=== PATIENT | female | born 1960 | race Caucasian/White ===

== ENCOUNTER 2020-02-15 15:04 | Outpatient (CLI) | payer OTHER, SELFPAY ==
--- NOTE | ~2020-02-15 | MM_ITS ---
EXAMINATION: MM screening yolanda BI w anne HISTORY: Screening mammogram TECHNIQUE: Craniocaudal and mediolateral oblique 3-D tomosynthesis images were obtained and synthetic 2-D images were generated. CAD analysis was submitted and interpreted. COMPARISON: 08/14/2018, 01/21/2017, 01/19/2017 BREAST PARENCHYMAL COMPOSITION: There are scattered areas of fibroglandular density. FINDINGS: RIGHT BREAST: There is no evidence of suspicious mass, calcification, or architectural distortion to suggest malignancy. There has been no significant interval change. LEFT BREAST: An asymmetry is present in the middle third of the slightly outer breast 5 cm from the n ipple on the craniocaudal view. IMPRESSION: 1. Left breast asymmetry on the craniocaudal view. 2. Additional mammographic views and possible breast ultrasound are recommended. BI-RADS Category 0: Incomplete: Needs additional imaging evaluation. Reviewed, dictated and finalized at location A. IMPRESSION: 1. Left breast asymmetry on the craniocaudal view. 2. Additional mammographic views and possible breast ultrasound are recommended . BI-RADS Category 0: Incomplete: Needs additional imaging evaluation.
== END 2020-02-15 15:05 | disposition home or self-care (01) ==
PROVIDERS: PCP Family Medicine Adolescent Medicine; Visit Provider Family Medicine Adolescent Medicine
DX: Z12.31 Encounter for screening mammogram for malignant neoplasm of breast (principal); R92.8 Other abnormal and inconclusive findings on diagnostic imaging of breast
CPT/HCPCS: 77063; 77067

== ENCOUNTER 2020-03-10 12:33 | Outpatient (CLI) | payer OTHER, SELFPAY ==
--- NOTE | ~2020-03-10 | MMUS_ITS ---
EXAMINATION: MM diagnostic mammo unilat LT, US breast LT limited HISTORY: Left breast asymmetry on screening mammogram TECHNIQUE: Additional 3-D tomosynthesis images of the left breast were performed and synthetic 2-D im ages were generated. CAD analysis was submitted and interpreted. High resolution limited left breast ultrasound was performed. COMPARISON: 02/15/2020, 08/14/2018, 01/19/2017, 03/08/2014 FINDINGS: MAMMOGRAPHIC FINDINGS: With spot compression views, the left breast asymmetry has appearance similar to the 2013 comparison. ULTRASOUND: There is no evidence of focal abnormal solid or cystic lesion in the vicinity of the mammographic fin ding in question. IMPRESSION: 1. No mammographic or sonographic evidence of malignancy. 2. Recommend routine screening mammography in one year. BI-RADS Category 2: Benign finding(s). Reviewed, dictated and finalized at location A. IMPRESSION: 1. No mammographic or sonographic evidence of malignancy. 2. Recommend routine screening mammography in one year. BI-RADS Category 2: Benign finding(s).
== END 2020-03-10 12:34 | disposition home or self-care (01) ==
LOC: ANHIMG 12:34
PROVIDERS: PCP Family Medicine Adolescent Medicine; Visit Provider Family Medicine Adolescent Medicine
DX: R92.8 Other abnormal and inconclusive findings on diagnostic imaging of breast (principal)
CPT/HCPCS: 76642; 77065

== ENCOUNTER 2020-10-03 21:36 | Emergency (ER) | payer OTHER, SELFPAY ==
--- NOTE | ~2020-10-03 | XR_ITS ---
EXAMINATION: XR chest 2V DATE: 10/03/2020 22:18 INDICATION: Sternal chest pain TECHNIQUE: PA and lateral views of the chest are obtained. COMPARISON: None available FINDINGS: The lungs are free of acute opacities. There is no pleural effusion or pneumothorax. The ca rdiomediastinal silhouette is normal. There is mild thoracic spondylosis. IMPRESSION: 1. No acute cardiopulmonary abnormality. Reviewed, dictated and finalized at location A.
--- NOTE | 2020-10-03 21:38 | ECG_ITS ---
Measurements Intervals [place] Rate: 89 P: 82 FL: 174 QRS: 55 QRSD: 80 T: 28 QT: 362 QTc: 442 Interpretive Statements SINUS RHYTHM FREQUENT ATRIAL PREMATURE COMPLEXES RSR' IN V1 OR V2, CONSIDER RIGHT VENTRICULAR HYPERTROPHY OR RIGHT VCD BORDERLINE ST-T WAVE ABNORMALITY- ANTEROLAT/INF LEADS ABNORMAL ECG Electronically Signed On 10-04-2020 5:49:36 CDT by Kendall Lo D.O.
[2020-10-03 21:48] VITALS: BP 178/82; PULSE 85; RESP 18; TEMP 36.2; O2SAT 100
[2020-10-03 22:13] LABS: Basophils Absolute Auto 0.1 K/mm3 (0.0-0.1); Basophils Percent Auto 0.7 % (0.2-1.2); Eosinophils Absolute Auto 0.1 K/mm3 (0-0.3); Eosinophils Percent Auto 1.4 % (0-4.4); Hematocrit 47.6 % (37.0-47.0); Hemoglobin 15.5 g/dL (12.0-15.0); Immature Granulocyte Absolute 0.02 K/mm3 (0.00-0.031); Immature Granulocyte Percent A 0.2 % (0-0.5); Lymphocytes Absolute Auto 3.48 K/mm3 (0.9-3.2); Lymphocytes Percent Auto 36.7 % (18.3-44.2); Mean Corpuscular HGB Conc 32.6 g/dl (32-36); Mean Corpuscular Hemoglobin 28.5 pg (26-34); Mean Corpuscular Volume 87.7 fl (80-100); Mean Platelet Volume 10.2 fl (7.4-10.4); Monocytes Absolute Auto 0.7 K/mm3 (0.1-0.6); Neutrophils Absolute Auto 5.1 K/mm3 (1.3-6.7); Platelet Count Result 271 k/mm3 (150-375); Red Blood Count 5.43 M/mm3 (4.2-5.4); Red Cell Distribution Width 13.2 % (11.5-14.5); White Blood Count 9.5 K/mm3 (4.5-10.0)
[2020-10-03 22:21] LABS: Anion Gap 9 mmol/L (8-16); Blood Urea Nitrogen 16 mg/dL (7-17); Calcium 9.6 mg/dL (8.4-10.2); Carbon Dioxide 24 mmol/L (22-30); Chloride 108 mmol/L (98-107); Estimated CRCL calculation 63 ml/min; Estimated Glomerular Filt Rate > 60; Glucose 95 mg/dL (65-105); INR 0.8; Potassium 3.7 mmol/L (3.4-5.0); Prothrombin Time 11.9 Seconds (11.1-14.7); Sodium 141 mmol/L (137-145)
[2020-10-03 22:22] LABS: Partial Thromboplastin Time 24.7 SECONDS (22.3-36.8)
[2020-10-03 22:33] LABS: Troponin I < 0.012 ng/mL (0.000-0.034)
--- NOTE | 2020-10-03 23:00 | ED.ARRPALP ---
HPI - Arrhythmia/Palpitations General Chief Complaint: Arrhythmia/Palpitations Stated Complaint: palpitations Time Seen by Provider: 10/03/20 22:48 History of Present Illness HPI narrative: 59 yo female w/ h/o htn presents to the ED c/o palpitations. SHe reports that this afternoon she noted that she kept feeling her heart have 2 fast beats then skip the next one. This seemd to be happening a few times each minute. This was accompanied by a nonpainful funny feeling in her chest. She notes that this may have been anxiety as she was becoming increasingly concerned about the palpitations. They eventually went away on there own. Although they returned again this evening. She denies any additional symptoms at this time. Related Data Home Medications Medication Instructions Recorded Confirmed atorvastatin 10/03/20 lisinopril 10/03/20 lorazepam 10/03/20 10/03/20 Allergies Allergy/AdvReac Type Severity Reaction Status Date / Time No Known Allergies Allergy Verified 10/03/20 21:59 Review of Systems Review of Systems: All systems reviewed & are unremarkable except as noted in HPI and below Constitutional: Constitutional: Denies chills, Denies fever(s) and Denies weakness Cardiovascular: Cardiovascular: Reports as per HPI Respiratory: Respiratory: Denies dyspnea Gastrointestinal: Gastrointestinal: Denies abdominal pain and Denies nausea Genitourinary: Genitourinary: Reports no additional female genitourinary complaints Neurologic: Denies confusion, Denies dizziness and Denies weakness Psychiatric: Psychiatric: Reports anxiety [facility] Past Medical History Medical History (Updated 10/07/20 @ 18:24 by Tommie Bauer MD) HTN (hypertension) Social History Social History (Updated 10/07/20 @ 18:24 by Tommie Bauer MD) Smoking status: Never smoker Exam Const: General: healthy appearing, no acute distress and alert Orientation/consciousness: patient oriented x3 HENMT: Head: normal to inspection Neck: Neck: normal visual inspection Resp: Effort & Inspection: normal respiratory effort Auscultation: clear to auscultation bilaterally Cardio: Rate: regular rate Rhythm: abnormal rhythm with ectopic beats Heart sounds: no gallops and no murmurs Peripheral pulses: Peripheral pulses 2+ throughout Skin: General skin exam: normal color Neuro: General: patient oriented x3, moves all extremities and CN's II-XI intact bilaterally Speech: normal speech Extrem: General: normal to inspection and no edema Psych: Affect: Anxious affect present Course Vital Signs Vital signs: Vital Signs Temperature 36.2 C L 10/03/20 21:48 Pulse Rate 85 10/03/20 21:48 Respiratory Rate 18 10/03/20 21:48 Blood Pressure 178/82 H 10/03/20 21:48 Pulse Oximetry 100 10/03/20 21:48 Temperature 36.2 C L 10/03/20 21:48 Pulse Rate 81 10/04/20 00:04 Respiratory Rate 18 10/04/20 00:04 Blood Pressure 145/79 H 10/04/20 00:04 Pulse Oximetry 100 10/04/20 00:04 MDM - Arrhythmia/Palpitations MDM Narrative Medical decision making narrative: She has frequent PACs on EKG and telemetry. No chest pain. Vitals stable. Troponin negative. I discussed this finding with her. She will contact her PCP if she continues to have symptoms as continuous monitoring may be indicated to rule out anything more serious that did not occur during her time in the ED. Differential Diagnosis Differential diagnosis: Likely palpitations, anxiety, artial fibrillation, artial flutter, ventricular premature beats and other Medical Records Attestation: I reviewed the patient's medical records. Lab Data Attestation: I reviewed the patient's lab results. Result diagrams: 10/03/20 22:00 10/03/20 22:00 Labs: Lab Results 10/03/20 10/03/20 10/03/20 Range/Units 22:00 22:00 22:00 WBC 9.5 (4.5-10.0) K/mm3 RBC 5.43 H (4.2-5.4) M/mm3 Hgb 15.5 H (12.0-15.0) g/dL Hct 47.6 H (37.0-
[2020-10-03 23:10] VITALS: BP 138/79; PULSE 82; RESP 12; O2SAT 100
[2020-10-04 00:04] VITALS: BP 145/79; PULSE 81; RESP 18; O2SAT 100
== END 2020-10-04 00:04 | disposition home or self-care (01) ==
PROVIDERS: Emergency Provider Emergency Medicine; PCP Family Medicine Adolescent Medicine
DX: I49.1 Atrial premature depolarization (principal); I10 Essential (primary) hypertension; R94.31 Abnormal electrocardiogram [ECG] [EKG]
CPT/HCPCS: 36415; 71046; 80048; 84484; 85025; 85610; 85730; 93005; 99284

== ENCOUNTER 2021-06-19 07:48 | Outpatient (CLI) | payer OTHER, SELFPAY ==
--- NOTE | ~2021-06-19 | MM_ITS ---
EXAMINATION: MM screening yolanda BI w anne HISTORY: Screening TECHNIQUE: Craniocaudal and mediolateral oblique 3-D tomosynthesis images were obtained and synthetic 2-D images were generated. CAD analysis was submitted and interpreted. COMPARISON: Comparison to multiple prior studies sequentially, with oldest reviewed study dated 02/14. BREAST PARENCHYMAL COMPOSITION: There are scattered areas of fibroglandular density. FINDINGS: There is no evidence of suspicious mass, calcification, or architectural distortion to sugg est malignancy in either breast. There has been no suspicious interval change. IMPRESSION: 1. No mammographic evidence of malignancy. 2. Recommend routine screening mammography in one year. BI-RADS Category 1: Negative Reviewed, dictated and finalized at location A. ENGINEER
== END 2021-06-19 07:49 | disposition home or self-care (01) ==
LOC: ANHIMG 07:50
PROVIDERS: PCP Family Medicine Adolescent Medicine; Visit Provider Family Medicine Adolescent Medicine
DX: Z12.31 Encounter for screening mammogram for malignant neoplasm of breast (principal)
CPT/HCPCS: 77063; 77067

== ENCOUNTER 2022-08-20 08:48 | Outpatient (CLI) | payer OTHER, SELFPAY ==
--- NOTE | ~2022-08-20 | MM_ITS ---
EXAMINATION: MM screening yolanda BI w anne HISTORY: Screening TECHNIQUE: Craniocaudal and mediolateral oblique 3-D tomosynthesis images were obtained and synthetic 2-D images were generated. CAD analysis was submitted and interpreted. COMPARISON: Comparison to multiple prior studies sequentially, with oldest reviewed study dated 10/2016. BREAST PARENCHYMAL COMPOSITION: Breast composed of scattered areas of fibroglandular density FINDINGS: There is possible developing architectural distortion in the lower upper quadrant of the left breast. The right breast is stable without evidence for malignancy. IMPRESSION: 1. Possible developing architectural distortion/asymmetry, upper outer quadrant of the left breast an teriorly. 2. Additional mammographic views and possible breast ultrasound are recommended. BI-RADS Category 0: Incomplete: Needs additional imaging evaluation. Reviewed, dictated and finalized at location A. IMPRESSION: 1. Possible developing architectural distortion/asymmetry, upper outer quadrant of the left breast anteriorly. 2. Additional mammographic views and possible breast ultrasound are recommended . BI-RADS Category 0: Incomplete: Needs additional imaging evaluation.
== END 2022-08-20 08:49 | disposition home or self-care (01) ==
LOC: ANHIMG 08:49
PROVIDERS: PCP Family Medicine Adolescent Medicine; Visit Provider Family Medicine Adolescent Medicine
DX: Z12.31 Encounter for screening mammogram for malignant neoplasm of breast (principal); R92.8 Other abnormal and inconclusive findings on diagnostic imaging of breast
CPT/HCPCS: 77063; 77067

== ENCOUNTER 2022-08-25 13:46 | Outpatient (CLI) | payer OTHER, SELFPAY ==
--- NOTE | ~2022-08-25 | MM_ITS ---
EXAMINATION: MM diagnostic yolanda LT w anne HISTORY: Possible developing architectural distortion/asymmetry reported in anterior upper outer left breast on August 20, 2022 screening mammogram TECHNIQUE: Additional 3-D tomosynthesis images of the left breast were performed and synthetic 2-D im ages were generated. Rolled medial and rolled lateral craniocaudal views of left breast. CAD analysis was submitted and interpreted. COMPARISON: August 20, 2022, June 19ilateral screening mammogram examinations FINDINGS: No suspicious mass or architectural distortion is evident on these supplemental views. IMPRESSION: 1. No mammographic evidence of malignancy 2. Routine annual mammographic screening is recommended BI-RADS Category 1: Negative Reviewed, dictated and finalized at location A.
== END 2022-08-25 13:47 | disposition home or self-care (01) ==
LOC: ANHIMG 13:47
PROVIDERS: PCP Family Medicine Adolescent Medicine; Visit Provider Family Medicine Adolescent Medicine
DX: R92.8 Other abnormal and inconclusive findings on diagnostic imaging of breast (principal)
CPT/HCPCS: 77061; 77065; G0279

== ENCOUNTER 2023-11-23 11:17 | Outpatient (CLI) | payer OTHER, SELFPAY ==
--- NOTE | ~2023-11-23 | MM_ITS ---
EXAMINATION: MM screening yolanda BI w anne HISTORY: Screening TECHNIQUE: Craniocaudal and mediolateral oblique 3-D tomosynthesis images were obtained and synthetic 2-D images were generated. CAD analysis was submitted and interpreted. COMPARISON: Comparison to multiple prior studies sequentially, with oldest reviewed study dated 05/2018. BREAST PARENCHYMAL COMPOSITION: Not dense: There are scattered areas of fibroglandular density. FINDINGS: There is no evidence of suspicious mass, calcification, or architectural distortion to sugg est malignancy in either breast. There has been no suspicious interval change. IMPRESSION: 1. No mammographic evidence of malignancy. 2. Recommend routine screening mammography in one year. BI-RADS Category 1: Negative Reviewed, dictated and finalized at location B.
== END 2023-11-23 11:18 ==
LOC: MICIMG 11:17
PROVIDERS: PCP Family Medicine Adolescent Medicine; Visit Provider Family Medicine Adolescent Medicine
DX: Z12.31 Encounter for screening mammogram for malignant neoplasm of breast (principal)
CPT/HCPCS: 77063; 77067

== ENCOUNTER 2025-03-14 13:57 | Outpatient (CLI) | payer OTHER, SELFPAY ==
--- NOTE | ~2025-03-14 | MM_ITS ---
EXAMINATION: MM screening [facility] BI w anne HISTORY: Screening TECHNIQUE: Craniocaudal and mediolateral oblique 3-D tomosynthesis images were obtained and synthetic 2-D images were generated. CAD analysis was submitted and interpreted. COMPARISON: Comparison to multiple prior studies sequentially, with oldest reviewed study dated 02/15/2020. BREAST PARENCHYMAL COMPOSITION: Not dense: There are scattered areas of fibroglandular density. FINDINGS: There is no evidence of suspicious mass, calcification, or architectural distortion to suggest malignancy in either breast. There has been no suspicious interval change. IMPRESSION: 1. No mammographic evidence of malignancy. 2. Recommend routine screening mammography in one year. BI-RADS Category 1: Negative Reviewed, dictated and finalized at location B.
== END 2025-03-14 13:58 | disposition home or self-care (01) ==
LOC: MICIMG 13:59
PROVIDERS: PCP Family Medicine Adolescent Medicine; Visit Provider Family Medicine Adolescent Medicine
DX: Z12.31 Encounter for screening mammogram for malignant neoplasm of breast (principal)
CPT/HCPCS: 77063; 77067